=== PATIENT | male | born 1945 | race Caucasian/White ===

== ENCOUNTER → 2016-12-23 | Outpatient (CLI) | payer OTHER | LOC: BMCIMAGING 11:15 | PROVIDERS: ATTEND Internal Medicine Rheumatology | DX: M20.11 Hallux valgus (acquired), right foot (principal); M19.041 Primary osteoarthritis, right hand; M19.042 Primary osteoarthritis, left hand; Z98.890 Other specified postprocedural states ==

== ENCOUNTER → 2017-05-15 | Outpatient (CLI) | payer OTHER | LOC: BMCIMAGING 10:37 | PROVIDERS: ATTEND Internal Medicine Rheumatology | DX: M19.011 Primary osteoarthritis, right shoulder (principal) ==

== ENCOUNTER → 2017-12-11 | Outpatient (CLI) | payer OTHER | LOC: BMCIMAGING 09:09 → EDSTATUS 09:10 | PROVIDERS: ATTEND Internal Medicine Rheumatology | DX: M19.041 Primary osteoarthritis, right hand (principal); M25.741 Osteophyte, right hand; M25.742 Osteophyte, left hand; M18.0 Bilateral primary osteoarthritis of first carpometacarpal joints; M77.31 Calcaneal spur, right foot; M77.32 Calcaneal spur, left foot ==